=== PATIENT | female | born 1995 | race African-American/Black ===

== ENCOUNTER 2021-04-15 05:27 | Inpatient (IN) | payer OTHER ==
[2021-04-15] MEDS ORDERED: Ondansetron PF 4 MG/2 ML Vial IVP PRN ×3 (05:43→11:00)
[2021-04-15] MEDS ORDERED: Promethazine HCl 25 MG/ML VIAL IM PRN ×3 (05:43→11:00)
[2021-04-15] MEDS ORDERED: Lactated Ringer's 1,000 ML IV SCH (05:43)
[2021-04-15] MEDS ORDERED: hydrALAZINE 20 MG/ML VIAL SLOW IVP PRN ×2 (05:43→11:00)
[2021-04-15] MEDS ORDERED: Famotidine/PF 20 mg/2ml Vial SLOW IVP PRN (05:43)
[2021-04-15] MEDS ORDERED: Bicitra 30 ML UDCUP PO PRN (05:43)
[2021-04-15] MEDS ORDERED: ceFAZolin 2 GM/Dextrose 50 ML 2 GM in Premix Bag 1 BAG IVPB SCH (06:00)
[2021-04-15 06:33] VITALS: BMI 31.3
[2021-04-15 06:46] LABS: Hemoglobin 13.6 g/dL (12.0-15.5); Mean Corpuscular Hemoglobin 31.8 pg (27.0-33.0); Mean Corpuscular Volume 90.9 fl (81.6-98.3); Mean Platelet Volume 9.4 fl (7.4-10.4); Platelet Count 349 10x3/uL (150-450); Red Blood Cell (RBC) Count 4.28 10x6/uL (3.90-5.03); White Blood Cell (WBC) Count 13.6 10x3/uL (3.5-10.5)
[2021-04-15] MEDS ORDERED: Ondansetron PF 4 MG/2 ML Vial ONE (06:56)
[2021-04-15] MEDS ORDERED: Metoclopramide HCl 10 MG/2 ML VIAL ONE (06:56)
[2021-04-15] MEDS ORDERED: Oxytocin 10 UNITS/ML VIAL ONE ×2 (06:56→08:09)
[2021-04-15] MEDS ORDERED: Phenylephrine 40 MG/NS 250 ML 250 ML ONE (06:57)
[2021-04-15] MEDS ORDERED: Ketorolac Tromethamine 30 MG/ML VIAL ONE (06:57)
[2021-04-15] MEDS ORDERED: PHENYLEPHRINE-NS 100 MCG/ML 10 ML SYRINGE ONE (06:57)
[2021-04-15] MEDS ORDERED: Morphine PF 10 MG/10 ML VIAL ONE (07:00)
[2021-04-15 07:03] LABS: Amphetamine Not Detected (NotDetected); Barbiturates Screen Not Detected (NotDetected); Benzodiazepine Screen Not Detected (NotDetected); Cocaine Metabolite Screen Not Detected (NotDetected); Methadone Not Detected (NotDetected); Methamphetamine Not Detected (NotDetected); Opiate Screen Not Detected (NotDetected); Oxycodone Screen Not Detected (NotDetected); Phencyclidine (PCP) Detected (NotDetected); THC/Cannabinoid Screen Not Detected (NotDetected); Tricyclic Screen Not Detected (NotDetected)
[2021-04-15 07:14] LABS: Hep B Surf Ag Non-Reactive S/CO (NonReactive)
[2021-04-15 07:15] LABS: HBSAg Index 0.21 S/CO (0-0.99)
[2021-04-15 07:16] LABS: Syphilis Antibody Nonreactive (Nonreactive); Syphilis Antibody Index 0.09 S/CO (<1.00 Non-Reactive)
[2021-04-15] MEDS ORDERED: Naloxone HCl 0.4 mg/ml Vial IV PRN (08:42)
[2021-04-15] MEDS ORDERED: Fentanyl 100 MCG/2 ML VIAL SLOW IVP PRN (08:42)
[2021-04-15] MEDS ORDERED: Naloxone HCl 0.4 mg/ml Vial IVP PRN ×2 (08:42)
[2021-04-15] MEDS ORDERED: diphenhydrAMINE 50 MG/ML VIAL IVP PRN (08:42)
[2021-04-15] MEDS ORDERED: Meperidine HCl/PF 25 MG/ML VIAL SLOW IVP PRN (08:42)
[2021-04-15] MEDS ORDERED: Ondansetron HCl/PF 4 MG/2 ML Vial IVP PRN (08:42)
[2021-04-15] MEDS ORDERED: Promethazine HCl 25 MG SUPP PR PRN (08:42)
[2021-04-15] MEDS ORDERED: Hydrocerin (Eucerin) Cream 120 gm Jar TOP PRN (08:42)
[2021-04-15] MEDS ORDERED: Communication Order-Pharmacy FS SCH (08:45)
[2021-04-15] MEDS ORDERED: Bisacodyl 10 MG SUPP PR PRN (11:00)
[2021-04-15] MEDS ORDERED: Boostrix 0.5 ML (Tdap) VIAL IM ONE (11:00)
[2021-04-15] MEDS ORDERED: diphenhydrAMINE 25 MG CAP PO PRN (11:00)
[2021-04-15] MEDS ORDERED: Simethicone Chewable 80 MG TAB PO PRN (11:00)
[2021-04-15] MEDS ORDERED: Ferrous Sulfate 325 MG TAB PO SCH (11:15)
[2021-04-15] MEDS ORDERED: Docusate 100 MG CAP PO SCH (11:15)
[2021-04-15] MEDS ORDERED: Prenatal Vitamin 1 TAB PO SCH (11:15)
[2021-04-15] MEDS: Ketorolac Tromethamine 30 MG/ML VIAL IVP SCH ×3 (13:03→21:15)
[2021-04-15] MEDS ORDERED: Ketorolac Tromethamine 30 MG/ML VIAL IVP PRN (14:00)
[2021-04-15] MEDS ORDERED: HYDROcodone/Acetaminophen 5/325 mg Tablet PO PRN (21:00)
[2021-04-15] MEDS: Ferrous Sulfate 325 MG TAB PO SCH (21:13)
[2021-04-15] MEDS: Docusate 100 MG CAP PO SCH (21:13)
[2021-04-16] MEDS: Ketorolac Tromethamine 30 MG/ML VIAL IVP SCH ×5 (01:48→17:40)
[2021-04-16 05:08] LABS: Hemoglobin 12.3 g/dL (12.0-15.5); Mean Corpuscular HGB CONC 34.4 g/dL (32.0-36.0); Mean Corpuscular Hemoglobin 31.8 pg (27.0-33.0); Mean Corpuscular Volume 92.5 fl (81.6-98.3); Mean Platelet Volume 9.5 fl (7.4-10.4); Platelet Count 299 10x3/uL (150-450); Red Blood Cell (RBC) Count 3.87 10x6/uL (3.90-5.03); White Blood Cell (WBC) Count 11.9 10x3/uL (3.5-10.5)
[2021-04-16] MEDS: Ferrous Sulfate 325 MG TAB PO SCH (08:10)
[2021-04-16] MEDS: Prenatal Vitamin 1 TAB PO SCH (08:11)
[2021-04-16] MEDS: Docusate 100 MG CAP PO SCH ×3 (08:12→20:09)
[2021-04-17] MEDS: HYDROcodone/Acetaminophen 5/325 mg Tablet PO PRN ×3 (04:31→15:20)
[2021-04-17] MEDS: Ibuprofen 800 MG TAB PO SCH ×3 (04:38→13:29)
[2021-04-17] MEDS: Ferrous Sulfate 325 MG TAB PO SCH ×2 (04:38→08:30)
[2021-04-17 08:08] VITALS: BP 107/62; TEMP 97.6
[2021-04-17] MEDS: Docusate 100 MG CAP PO SCH (09:16)
[2021-04-17] MEDS: Prenatal Vitamin 1 TAB PO SCH (09:16)
== END 2021-04-17 14:05 | disposition home or self-care (01) | DRG 787 ==
LOC: CSHLD 05:27 → CSHPP 10:50
PROVIDERS: ADMIT Family Medicine; ATTEND Family Medicine
PROC: 10D00Z1 Extraction of Products of Conception, Low, Open Approach (ICD-10-PCS; principal; 2021-04-15)
DX: O34.211 Maternal care for low transverse scar from previous cesarean delivery (principal); O99.324 Drug use complicating childbirth; Z3A.38 38 weeks gestation of pregnancy; Z37.0 Single live birth; O24.420 Gestational diabetes mellitus in childbirth, diet controlled; F16.10 Hallucinogen abuse, uncomplicated; Z91.19 Patient's noncompliance with other medical treatment and regimen
CPT/HCPCS: 36415; 51702; 80306; 85027; 86780; 86850; 86900; 86901; 87340; J0690; J1885; J2274; J2405; J2590; J2765; J7120; S0028